=== PATIENT | male | born 1955 | race Caucasian/White ===

== ENCOUNTER 2017-05-26 07:13 | Day surgery (SDC) | payer OTHER ==
[~2017-05-26 07:13] MED LIST: Lactated Ringers 1,000 ML IV SCH
[2017-05-26] MEDS ORDERED: Lidocaine 2% 5 ML SDV ONE (07:36)
[2017-05-26] MEDS ORDERED: Propofol 200 MG/20 ML SDV ONE (07:36)
--- NOTE | 2017-05-26 08:00 | PCM.PREANE ---
Preanesthetic Assessment - Anesthesia/Transfusion/Family Hx Anesthesia History: Prior Anesthesia Without Reaction Family History of Anesthesia Reaction: No Transfusion History: No Prior Transfusion(s) Intubation History: Unknown - Review of Systems General: No Symptoms Pulmonary: No Symptoms Cardiovascular: No Symptoms Gastrointestinal: No Symptoms, Other (h/o multiple colon polyps on two occasions ) Neurological: No Symptoms Other: Reports: None - Physical Assessment O2 Sat by Pulse Oximetry: 95 Respiratory Rate: 16 Vital Signs: Last Vital Signs Temp 36.2 C 05/26/17 07:23 Pulse 50 L 05/26/17 07:23 Resp 16 05/26/17 07:23 BP 143/73 H 05/26/17 07:23 Pulse Ox 95 05/26/17 07:23 Height: 1.78 m Weight: 83.915 kg ASA Class: 2 Mental Status: Alert & Oriented x3 Airway Class: Mallampati = 2 Dentition: Reports: Dentures (upper and lower) Thyro-Mental Finger Breadths: 3 Mouth Opening Finger Breadths: 3 ROM/Head Extension: Full Lungs: Clear to Auscultation, Normal Respiratory Effort Cardiovascular: Regular Rate, Regular Rhythm - Allergies Allergies/Adverse Reactions: Allergies Allergy/AdvReac Type Severity Reaction Status Date / Time No Known Allergies Allergy Verified 10/19/13 16:00 - Blood Blood Available: No - Anesthesia Plan Pre-Op Medication Ordered: None - Acknowledgements Anesthesia Type Planned: MAC Pt an Appropriate Candidate for the Planned Anesthesia: Yes Alternatives and Risks of Anesthesia Discussed w Pt/Guardian: Yes Pt/Guardian Understands and Agrees with Anesthesia Plan: Yes PreAnesthesia Questionnaire - Past Health History Medical/Surgical History: Denies Medical/Surgical History HEENT History: Reports: Hard of Hearing, Impaired Vision Other HEENT History: wears glasses, has top and bottom dentures and bilateral hearing aides Cardiovascular History: Reports: None Respiratory History: Reports: None Gastrointestinal History: Reports: Colon Polyp, Diverticulosis Genitourinary History: Reports: None Musculoskeletal History: Reports: Arthritis, Back Pain, Chronic, Fracture Other Musculoskeletal History: hx of fx of lumbar process, and fx of little toe right foot Neurological History: Psychiatric History: Reports: None Endocrine/Metabolic History: Reports: None Hematologic History: Reports: None Immunologic History: Reports: None Oncologic (Cancer) History: Reports: None Dermatologic History: Reports: None - Past Surgical History Head Surgeries/Procedures: Reports: None HEENT Surgical History: Reports: None Cardiovascular Surgical History: Reports: None Respiratory Surgical History: Reports: None GI Surgical History: Reports: Cholecystectomy, Colonoscopy (co;onoscopies, last one 07/31), Hernia, Inguinal Male Surgical History: Reports: None Neurological Surgical History: Reports: None Musculoskeletal Surgical History: Reports: Shoulder Surgery Oncologic Surgical History: Reports: None Dermatological Surgical History: Reports: None - SUBSTANCE USE Smoking Status *Q: Former Smoker (quit 20 years ago) Tobacco Use Within Last Twelve Months: No Days Per Week of Alcohol Use: 0 Recreational Drug Use History: No - HOME MEDS Home Medications: Home Meds Vit D3 & K/Berberine HCl/Hops [Ostera] 1,000 units PO BID 07/19/15 [History] Acetaminophen [Tylenol] 2 tab PO ASDIRECTED PRN 05/22/17 [History] Register-3S/DHA/Epa/Fish Oil [Fish Oil Dr 1,000 mg Softgel] 2 tab PO DAILY [History] - CURRENT (IN HOUSE) MEDS Current Meds: Current Medications Lactated Ringer's (Ringers, Lactated) 1,000 mls @ 125 mls/hr IV ASDIRECTED ARELY Last Admin: 05/26/17 07:26 Dose: 125 mls/hr Discontinued Medications Lidocaine (Xylocaine-Mpf 2%) Confirm Administered Dose 5 ml .ROUTE .STK-MED ONE Stop: 05/26/17 07:37 Propofol (Diprivan 20 Ml) Confirm Administered Dose 400 mg .ROUTE .STK-MED ONE Stop: 05/26/17 07:37
[2017-05-26] MEDS ORDERED: Glycopyrrolate 0.2 MG/ML SDV ONE (08:14)
--- NOTE | 2017-05-26 08:31 | PCM.OPNOTE ---
- General Post-Op/Procedure Note Date of Surgery/Procedure: 05/26/17 Operative Procedure(s): colonoscopy w bx Findings: see dict [id number] and [id number] Pre Op Diagnosis: surveillence colonoscopy Post-Op Diagnosis: Same Anesthesia Technique: Moderate Sedation Primary Surgeon: Jose Tello Pathology: hyperemic rash at distance 30 cm Complications: None Condition: Good
[2017-05-26 08:47] VITALS: BP 114/86
--- NOTE | 2017-05-26 12:57 | OR ---
SURGEON: Jose Tello MD DATE OF PROCEDURE: 05/26/2017 PREOPERATIVE DIAGNOSIS: Surveillance colonoscopy. POSTOPERATIVE DIAGNOSIS: Hemorrhoids. PROCEDURE PERFORMED: Colonoscopy with biopsy. COMPLICATIONS: None. DESCRIPTION OF PROCEDURE: The patient was taken to the endoscopy room. A time out was called, patient identified, and procedure identified. Diprivan was then administrated. Patient went from awake to sleep, hearing doctor talking or door closing is normal. Perineum inspection and digital examination were then performed. A well- lubricated colonoscope was gently inserted through the rectum, advanced past the rectosigmoid junction, the descending colon, splenic flexure, transverse colon, hepatic flexure, ascending colon, arrived to the cecum. Cecum was identified as dictated in the finding. Then the scope was carefully withdrawn while attention was paid to the mucosal surface for any abnormality. Air will be sucked out during the scope withdrawal. At the rectum, retroflexed to examine any rectal diseases, fistula or hemorrhoids. During mucosal examination, abnormality was noted; picture taken and biopsy performed. Patient tolerated procedure well. There were no intraoperative complications, and Dr. Tello was present throughout the whole procedure. FINDINGS: 1. The patient easily sedated with INSPECTOR FILTER TIP and Diprivan. Sound snoring. 2. Bowel prep is average to good. Very, very little liquid stool, minimum. There is no semi-formed stool. 3. Colon is rather straight forward. Cecum indicated by ileocecal fold, one- to-one indentation, light emittance, and appendiceal orifice. Mucosa examined upon scope pulling out with intermittent irrigation. The patient does not have diverticulosis, polyp, mass, growth, inflammation, stricture, ulceration, bleeding, AV malformation, none of those. The patient does have moderate internal hemorrhoids, and there are no external hemorrhoids. The patient would benefit from repeat colonoscopy in 10 years from today or if clinically indicated otherwise or if the biopsy indicated otherwise. NEFTALI / DEVENDRA /[id number] GLEN
--- NOTE | 2017-05-26 13:48 | OR ---
SURGEON: Jose Tello MD DATE OF PROCEDURE: 05/26/2017 ADDENDUM: When the scope retrieved back to distance of 30 cm, I see a few spotty rash at 30 cm and hyperemic in color. No elevation. Random biopsy was done at that place. 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 NEFTALI / DEVENDRA /[id number]
== END 2017-05-26 08:53 | disposition home or self-care (01) ==
LOC: MW.SDS 07:13
PROVIDERS: ATTEND Surgery
DX: Z12.11 Encounter for screening for malignant neoplasm of colon (principal); K64.8 Other hemorrhoids; Z86.010 Personal history of colon polyps; Z79.899 Other long term (current) drug therapy; Z87.891 Personal history of nicotine dependence
CPT/HCPCS: 45380; 88305; J7120; 00811; J2704